=== PATIENT | female | born 1980 | race Caucasian/White ===

== ENCOUNTER → 2018-11-06 | Outpatient (CLI) | payer BC ==
[~2018-11-06] VITALS: Ht 162.6 cm; Wt 59.1 kg
[2018-11-06 16:08] LABS: HEMOGLOBIN 11.6 g/dL (12.5-16.0); MEAN PLATELET VOLUME 9.9 fl (7.4-10.4); RED BLOOD COUNT 3.96 M/mm3 (4.10-5.30); RED CELL DISTRIBUTION WIDTH 12.9 % (11.5-14.5); WHITE BLOOD COUNT 6.7 K/mm3 (4.8-10.8)
[2018-11-06 16:24] VITALS: BP 110/70
[2018-11-06 17:25] LABS: ALBUMIN 4.2 g/dL (3.5-5.0); CALCIUM 8.9 mg/dL (8.4-10.2); TOTAL BILIRUBIN 0.3 mg/dL (0.2-1.3)
== END ==
LOC: LAB 15:54
PROVIDERS: Family Medicine
DX: R00.8 Other abnormalities of heart beat (principal); G93.5 Compression of brain; D64.9 Anemia, unspecified

== ENCOUNTER → 2019-02-08 | Outpatient (CLI) | payer BC ==
[2018-11-06 16:24] VITALS: BP 110/70
[2019-02-08 09:34] LABS: HEMATOCRIT 36.2 % (37.0-47.0); HEMOGLOBIN 11.7 g/dL (12.5-16.0); MEAN PLATELET VOLUME 9.6 fl (7.4-10.4); RED BLOOD COUNT 4.12 M/mm3 (4.10-5.30); RED CELL DISTRIBUTION WIDTH 13.2 % (11.5-14.5)
== END ==
LOC: LAB 09:22
PROVIDERS: Family Medicine
DX: D50.8 Other iron deficiency anemias (principal)

== ENCOUNTER 2019-02-27 21:30 | Emergency (ER) | payer BC ==
[~2019-02-27] VITALS: Ht 167.6 cm; Wt 56.8 kg
[2019-02-27 21:36] VITALS: BP 126/71
[2019-02-27] MEDS ORDERED: NATURAL IRON65 MG PO (21:39)
[2019-02-27] MEDS ORDERED: TOPCARE ASPIRIN81 M1 PO (21:40)
== END 2019-02-27 22:53 | disposition home or self-care (01) ==
LOC: ED 21:30
DX: F41.9 Anxiety disorder, unspecified (principal); D64.9 Anemia, unspecified; Z79.82 Long term (current) use of aspirin

== ENCOUNTER → 2019-07-08 | Outpatient (CLI) | payer BC ==
[~2019-07-08] MED LIST: NATURAL IRON65 MG PO; TOPCARE ASPIRIN81 M1 PO
== END ==
LOC: RAD 09:44
DX: D50.8 Other iron deficiency anemias (principal); R09.89 Other specified symptoms and signs involving the circulatory and respiratory systems; Z86.73 Personal history of transient ischemic attack (TIA), and cerebral infarction without residual deficits

== ENCOUNTER → 2020-02-14 | Outpatient (CLI) | payer BC | LOC: RAD 10:52 | DX: E04.1 Nontoxic single thyroid nodule (principal) ==

== ENCOUNTER → 2020-02-21 | Outpatient (CLI) | payer BC | LOC: RAD 07:52 | DX: E04.1 Nontoxic single thyroid nodule (principal) ==